=== PATIENT | male | born 2000 | race Two or more races ===

== ENCOUNTER → 2018-05-03 | Emergency (ER) | payer MEDICAID ==
[~2018-05-03] VITALS: Ht 170.2 cm; Wt 70.3 kg
[~2018-05-03] MED LIST: ACETAMINOPHEN ES 500 MG TABLET PO ONE
[2018-05-03 17:18] VITALS: BP 128/75
== END | disposition home or self-care (01) ==
LOC: ER 16:47
DX: S30.810A Abrasion of lower back and pelvis, initial encounter (principal); M25.532 Pain in left wrist; V18.0XXA Pedal cycle driver injured in noncollision transport accident in nontraffic accident, initial encounter; Y93.I9 Activity, other involving external motion; Y92.480 Sidewalk as the place of occurrence of the external cause; Y99.8 Other external cause status
CPT/HCPCS: 99283; A4606; Z7610